=== PATIENT | female | born 1950 | race Two or more races ===

== ENCOUNTER 2024-02-17 17:00 | Emergency (ER) | payer MEDICAID, SELFPAY ==
[2024-02-17 17:31] VITALS: BP 183/73; PULSE 72; RESP 19; TEMP 36.9; O2SAT 97; BMI 32.8
--- NOTE | 2024-02-17 17:35 | EDRME_ITS ---
Rapid Medical Screening Exam [facility] Arrival date/time: 02/17/24 17:00 73-year-old female with a history of hypertension, hyperlipidemia, type 2 diabetes presents to the emergency room with a chief complaint of elevated blood pressure, lightheadedness, fatigue. Patient states she was sent over by her primary care provider for blood pressure been in the 200s systolic. Patient states she is compliant with her medication and takes a daily. I have greeted and performed a focused initial assessment of this patient. A comprehensive ED assessment and evaluation of the patient, analysis of all test results, and completion of the medical decision making process will be conducted by additional ED providers. Chief Complaint: Headache Vital signs: Vital Signs Temperature 98.5 F 02/17/24 17:31 Pulse Rate 72 02/17/24 17:31 Respiratory Rate 19 02/17/24 17:31 Blood Pressure 183/73 H 02/17/24 17:31 Pulse Oximetry (%) 97 02/17/24 17:31 Oxygen Delivery Method Room Air 02/17/24 17:31 Vital signs reviewed by provider: Yes
[2024-02-17 17:56] VITALS: BP 183/73; PULSE 72
[2024-02-17] MEDS: cloNIDine HCL 0.1 MG TABLET PO (17:56)
[2024-02-17 18:05] LABS: Basophils % (Auto) 1 % (0-2.5); Eosinophils # (Auto) 0.2 Thou/mm3 (0.0-0.5); Eosinophils % (Auto) 2 % (0-10); Hemoglobin 12.7 g/dL (12.0-16.0); Immature Granulocytes % (Auto) 0 % (0-0); Immature Granulocytes Auto 0.03 Thou/mm3 (0.00-0.00); Lymphocytes # (Auto) 2.9 Thou/mm3 (1.0-4.8); Lymphocytes % (Auto) 37 % (10-50); Mean Corpuscular HGB Conc 34.3 g/dl (31.0-37.0); Mean Corpuscular Hemoglobin 30.2 pg (25.0-35.0); Mean Corpuscular Volume 88 fL (80-100); Monocytes # (Auto) 0.6 Thou/mm3 (0.0-0.8); Monocytes % (Auto) 7 % (0-12); Neutrophils # (Auto) 4.2 Thou/mm3 (1.8-7.7); Neutrophils % (Auto) 53 % (37-80); Nucleated Red Blood Cell % 0 /100 WBC (0); Platelet Count 265 Thou/mm3 (140-440); RDW Standard Deviation 42.2 fL (36.4-46.3); Red Blood Count 4.21 Miln/mm3 (4.00-5.20); White Blood Count 7.9 Thou/mm3 (3.6-11.0)
[2024-02-17 18:29] LABS: B-Type Natriuretic Peptide 38 pg/mL (0-100)
[2024-02-17 18:30] LABS: INR 0.9 (0.9-1.3); Partial Thromboplastin Time 28.5 Seconds (22.0-36.0); Prothrombin Time 10.2 Seconds (9.0-12.2)
[2024-02-17 18:32] LABS: Alanine Aminotransferase 20 U/L (10-49); Albumin, Serum 4.9 gm/dL (3.4-4.8); Albumin/Globulin Ratio 1.6 (1.2-2.2); Alkaline Phosphatase 140 U/L (46-116); Anion Gap 10 (7-16); Aspartate Amino Transferase 15 U/L (0-34); BUN/Creatinine Ratio 19 Ratio (12-20); Bilirubin,Total 0.3 mg/dL (0.3-1.2); Blood Urea Nitrogen 15 mg/dL (9-23); Carbon Dioxide 26.5 mMol/L (20.0-31.0); Chloride 99 mMol/L (98-107); Creatinine (Component) 0.8 mg/dL (0.6-1.3); Estimated Creatinine Clearance 50.8 mL/min (>60); Globulin 3.1 gm/dL (2.3-3.5); Glucose 208 mg/dL (74-106); Magnesium 1.7 mg/dL (1.6-2.6); Osmolality,Calculated 276 (275-295); Potassium 4.2 mMol/L (3.4-5.1); Sodium 135 mMol/L (136-145); Troponin I < 0.020 ng/mL (0.0-0.045); eGFR > 60 See Note
[2024-02-17 18:56] LABS: Collection Type, Urine Clean Catch; Squamous Epithelial Cell,Urine 0 /hpf (0-5)
[2024-02-17 19:08] LABS: Bilirubin,Urine Negative (Negative); Blood,Urine Negative (Negative); Clarity,Urine Clear (Clear/Hazy); Color,Urine Colorless (Lt Yel-Yel); Glucose, Urine Negative (Negative); Ketones,Urine Negative (Negative); Leukocyte Esterase,Urine Negative (Negative); Nitrite,Urine Negative (Negative); PH,Urine 6.5 (5.0-7.0); Protein,Urine Negative (Neg - Trace); RBC,Urine 2 /hpf (0-3); Specific Gravity,Urine 1.012 (1.001-1.035); Urobilinogen,Urine Negative mg/dL (0.0-1.0); WBC,Urine 3 /hpf (0-5)
--- NOTE | 2024-02-17 19:09 | XR_ITS ---
Examination: CT brain head without contrast. 2-D sagittal coronal reconstructions Date and time of exam:February 17, 2024 2118 hrs. Indications: Severe headache today CTDI: vol (mGy):49.6 DLP: (mGycm):977 Technique: Multiple CT axial sections of the brain have been obtained, 5 mm slice thickness. Contrast has not been administered. 2-D sagittal, coronal reconstructions have been obtained Low dose protocols were performed. One or more of the following dose reduction techniques were used; automated exposure control, adjustment of the mA and/or KV according to patient size, use of iterative reconstruction technique. Findings: No significant ventricular enlargement. Intra-axial or extra-axial hemorrhage density is not seen. No mass effect or midline shift Basal cisterns are not remarkable. Fourth ventricle is midline. Cranial vault intact. Impression: Negative for acute hemorrhage, mass effect or midline shift
[2024-02-17 19:45] LABS: C-Reactive Protein 0.5 mg/dL (0.0-0.9); Sed Rate (ESR) 33 mm/hr (0-30)
--- NOTE | 2024-02-17 21:02 | PD.EDRME ---
Rapid Medical Screening Exam [facility]ME Arrival date/time: 02/17/24 17:00 02/17/24 17:00 73-year-old female with a history of hypertension, hyperlipidemia, type 2 diabetes presents to the emergency room with a chief complaint of elevated blood pressure, lightheadedness, fatigue. Patient states she was sent over by her primary care provider for blood pressure been in the 200s systolic. Patient states she is compliant with her medication and takes a daily. I have greeted and performed a focused initial assessment of this patient. A comprehensive ED assessment and evaluation of the patient, analysis of all test results, and completion of the medical decision making process will be conducted by additional ED providers. Chief Complaint: Headache Time Seen by Provider: 02/17/24 18:15 Vital signs: Vital Signs Temperature 98.5 F 02/17/24 17:31 Pulse Rate 72 02/17/24 17:31 Respiratory Rate 19 02/17/24 17:31 Blood Pressure 183/73 H 02/17/24 17:31 Pulse Oximetry (%) 97 02/17/24 17:31 Oxygen Delivery Method Room Air 02/17/24 17:31 RME Narrative: 02/17/24 17:00 73-year-old female with a history of hypertension, hyperlipidemia, type 2 diabetes presents to the emergency room with a chief complaint of elevated blood pressure, lightheadedness, fatigue. Patient states she was sent over by her primary care provider for blood pressure been in the 200s systolic. Patient states she is compliant with her medication and takes a daily. I have greeted and performed a focused initial assessment of this patient. A comprehensive ED assessment and evaluation of the patient, analysis of all test results, and completion of the medical decision making process will be conducted by additional ED providers.
[2024-02-17 21:24] VITALS: BP 104/59; PULSE 61; RESP 19; TEMP 37.1; O2SAT 96
--- NOTE | 2024-02-17 23:32 | PD.EDHA ---
ED Headache RME/HPI General Chief Complaint: Headache Stated Complaint: HEADACHE Time Seen by Provider: 02/17/24 18:15 Arrival date/time: 02/17/24 17:00 Limitations: no limitations RME / HPI RME / HPI Narrative: 02/17/24 17:00 73-year-old female with a history of hypertension, hyperlipidemia, type 2 diabetes presents to the emergency room with a chief complaint of elevated blood pressure, lightheadedness, fatigue. Patient states she was sent over by her primary care provider for blood pressure been in the 200s systolic. Patient states she is compliant with her medication and takes a daily. I have greeted and performed a focused initial assessment of this patient. A comprehensive ED assessment and evaluation of the patient, analysis of all test results, and completion of the medical decision making process will be conducted by additional ED providers. ------- Dr. [facility]end[facility] Main ED Evaluation: 73yo female with pmhx HTN, HLD, DM, cataracts presents to the ED for a chief complaint of elevated blood pressure x Tuesday. Patient states she's had a headache and started feeling dizzy today and was concerned, so she came in for evaluation. She states she feels like the room is spinning. She denies any history of similar dizziness. She has not been seen by her PCP for this. Denies any vision changes, cough, chest pain or any other associated symptoms. No known allergies. No vision changes. No neck pain or stiffness. Related Data Previous Rx's ?Medication ?Instructions ?Recorded meclizine 25 mg tablet 25 mg PO BID PRN dizziness #10 tabs 02/18/24 Allergies Allergy/AdvReac Type Severity Reaction Status Date / Time No Known Allergies Allergy Verified 02/17/24 17:03 Review of Systems Review of Systems Systems Reviewed: All systems reviewed, normal except as documented Past Medical History Social History SMOKING STATUS: Never smoker ED Exam General Limitations: Present no limitations General appearance: Present alert and in no apparent distress Head Head exam: Present atraumatic and other (no temporal artery ttp bilaterally) Eye Eye exam: Present normal appearance, PERRL and other (cornea not cloudy; no nystagmus); Absent scleral icterus ENT ENT exam: Present normal exam, normal oropharynx and mucous membranes moist Neck Neck exam: Present normal inspection, full ROM and trachea midline Chest Chest inspection: Present normal inspection and symmetric chest wall rise Respiratory Respiratory exam: Present normal lung sounds bilaterally Cardiovascular Cardiovascular exam: Present regular rate, normal rhythm and normal heart sounds Abdominal Exam Abdominal exam: Present soft and normal bowel sounds Extremities Exam Extremities exam: Present normal inspection and full ROM Back Exam Back exam: Present normal inspection and full ROM Neurological Exam Neurological exam: Present alert, oriented X3, CN II-XII intact and other (normal [id number]-[id number], normal sensations; negative romberg sign) Psychiatric Psychiatric exam: Present normal affect and normal mood Skin Skin exam: Present warm, dry, intact and normal color Course Course Course Narrative: Meclizine ordered due to the patient still being dizzy. 0123: Patient states she feels significantly better and feels comfortable going home. Quality Measures none Orders Category Date Time Status EKG (ED ONLY) *Do not use* NOW Care 02/17/24 17:[address] head/brain wo con Stat Exams 02/17/24 19:09 Completed EKG (ED Only) Stat Exams 02/17/24 17:34 Ordered B-Type Natriuretic Peptide Stat Lab 02/17/24 17:49 Completed C-Reactive Protein Stat Lab 02/17/24 17:49 Completed CBC Stat Lab 02/17/24 17:49 Completed Comprehensive Metabolic Panel Stat Lab 02/17/24 17:49 Completed Magnesium Stat Lab 02/17/24 17:49 Completed Partial Thromboplastin Time Stat Lab 02/17/24 17:49 Completed Prothrombin Time with INR Stat Lab 02/17/24 17:49 Completed Sed Rate (ESR) Stat Lab 02/17/24 17:49 Completed Troponin I Stat Lab 02/17/24 17:49 Completed Urinalysis Stat Lab 02/17/24 18:40 Completed Meclizine HCl [Antivert] Med 02/17/24 23:39 Discontinued 25 mg PO X1 ONE cloNIDine HCL [Catapres] Med 02/17/24 17:34 Discontinued 0.1 mg PO X1 ONE Vital Signs Vital signs: Vital Signs Temperature 98.5 F 02/17/24 17:31 Pulse Rate 72 02/17/24 17:31 Respiratory Rate 19 02/17/24 17:31 Blood Pressure 183/73 H 02/17/24 17:31 Pulse Oximetry (%) 97 02/17/24 17:31 Oxygen Delivery Method Room Air 02/17/24 17:31 Headache Patient data External records reviewed:: [facility] previous records (Per chart review, patient has no previous ED visits or admissions to this facility) Clinical information provided by:: patient Social determinants that could affect healthcare access:: none Patient has the following chronic illnesses:: HTN, DM, HLD How is presenting disease/condition affected by chronic disease/condition?: caused by Evaluation data The following diagnostics were reviewed and interpreted by me:: lab results, radiology exam(s) and EKG tracing(s) Lab and/or radiology exams considered but not ordered:: none Interpretation Summary: CBC is normal, CMP is normal, UA is unremarkable, according to my interpretation, EKG done at 1745, NSR, rate of 70, PVCs, QTc: 483, no STEMI, according to my interpretation. ----- [facility] Report Signed Patient: OMAR GOINS Record#: [id number] Birthdate: 1950 Age/Sex: 73 / F Location: [facility] Attending Dr: Ordering Physician: Zen Fields PA-C Date of Service: 02/17/24 Procedure(s): CT head/brain wo con Accession Number(s): [id number] cc: Christian Vaelro PA-C; Warren Flowers MD; Zen Fields PA-C~ Examination: CT brain head without contrast. 2-D sagittal coronal reconstructions Date and time of exam:February 17, 2024 2118 hrs. Indications: Severe headache today CTDI: vol (mGy):49.6 DLP: (mGycm):977 Technique: Multiple CT axial sections of the brain have been obtained, 5 mm slice thickness. Contrast has not been administered. 2-D sagittal, coronal reconstructions have been obtained Low dose protocols were performed. One or more of the following dose reduction techniques were used; automated exposure control, adjustment of the mA and/or KV according to patient size, use of iterative reconstruction technique. Findings: No significant ventricular enlargement. Intra-axial or extra-axial hemorrhage density is not seen. No mass effect or midline shift Basal cisterns are not remarkable. Fourth ventricle is midline. Cranial vault intact. Impression: Negative for acute hemorrhage, mass effect or midline shift Dictated By: Warren Flowers MD Signed By: <Electronically signed by Warren Flowers MD in OV> 02/17/24 8707 Medications / Prescriptions Medications or Prescriptions considered but not ordered:: none Medication administrations:: Medication Administration History Discontinued Medications Clonidine (Clonidine Hcl 0.1 Mg Tablet) 0.1 mg PO X1 ONE Stop: 02/17/24 17:35 Last Admin: 02/17/24 17:56 Dose: 0.1 mg Documented By: OA Meclizine HCl (Meclizine Hcl 25 Mg Tablet) 25 mg PO X1 ONE Stop: 02/17/24 23:40 Last Admin: 02/17/24 23:44 Dose: 25 mg Documented By: GB see above Consultations Consultation(s) initiated? (list below): No Diagnosis Differential diagnosis headache: other (vertigo, uncontrolled HTN, dehydration, electrolyte abnormality) Most likely diagnosis given after review of the tests above:: see below Admission Indicated Admission indicated?: not indicated Explain why admission is indicated or not indicated:: Admission criteria not met. Admission Request Was there a request for admission?: No Disposition Plan Disposition Plan: Discharge Discharge Attestation Discharge Attestation: The patient and all family members were given an opportunity to ask questions and understood the discharge instructions. Discharge instructions specifically effects, indications for sooner follow up or return to the emergency department, and the expected course of current diagnosis. Patient condition: Stable Discharge Plan Plan Patient Disposition: HOME (Self Care) Patient condition on transfer: Stable Prescriptions/Referrals Prescriptions/Med Rec: New meclizine 25 mg tablet 25 mg PO BID PRN (Reason: dizziness) Qty: 10 0RF Referrals: Christian Valero PA-C [Primary Care Provider] - In 1 week Problem List Clinical Impression: Elevated blood pressure reading, Dizziness Patient/Caregiver Discharge Instructions Education Materials: [facility] Print Language: Serbian Stand Alone Forms: Mary Award Info., Patient Portal Info Letter
[2024-02-17] MEDS: MECLIZINE HCL 25 MG TABLET PO (23:44)
[2024-02-18 00:19] VITALS: BP 109/61; PULSE 63; RESP 19; TEMP 37.1; O2SAT 96
== END 2024-02-18 01:38 | disposition home or self-care (01) ==
PROVIDERS: Nurse Practitioner Family; Emergency Provider Emergency Medicine; PCP Family Medicine
DX: R42 Dizziness and giddiness (principal); E11.9 Type 2 diabetes mellitus without complications; E78.5 Hyperlipidemia, unspecified; I10 Essential (primary) hypertension
CPT/HCPCS: 36415; 70450; 80053; 81001; 83735; 83880; 84484; 85025; 85610; 85652; 85730; 86140; 93005; 99284; A9270

== ENCOUNTER → 2024-02-23 | Outpatient (CLI) | payer MEDICAID, SELFPAY ==
--- NOTE | 2024-02-23 09:00 | XR_ITS ---
Examination: Upper GI series with KUB Esophagram Fluoroscopy 15 spot fluoroscopic films of the esophagus and stomach Exam date and time: February 22, 2019 5:10 AM INDICATIONS: Vomiting beginning 6 months ago FINDINGS: Ug Designer KUB demonstrates moderate stool throughout the colon Patient swallowed thin barium with 13 spot films obtained of the esophagus stomach duodenal bulb Primary peristaltic esophageal waves are noted Mild intermittent gastroesophageal reflux Moderate sliding esophageal hernia. No constricting esophageal lesion No stricture at the gastroesophageal junction No gastric mass or deformity or ulceration Duodenal bulb expands symmetrically Duodenal sweep and small bowel visualized are unremarkable IMPRESSION: Mild intermittent gastroesophageal reflux Moderate sliding esophageal hernia No stricture the gastroesophageal junction No gastric mass or ulceration or deformity Fluoroscopy 0.13 minutes 15 spot fluoroscopic films
== END | disposition home or self-care (01) ==
PROVIDERS: PCP Family Medicine; Referring Provider Surgery; Visit Provider Surgery
DX: K21.9 Gastro-esophageal reflux disease without esophagitis (principal); K46.9 Unspecified abdominal hernia without obstruction or gangrene
CPT/HCPCS: 74240

== ENCOUNTER 2024-07-31 14:43 | Observation (INO) | payer MEDICAID, SELFPAY ==
[2024-07-30 09:42] VITALS: BMI 32.5
[2024-07-30 10:53] LABS: Basophils % (Auto) 0 % (0-2.5); Eosinophils # (Auto) 0.2 Thou/mm3 (0.0-0.5); Eosinophils % (Auto) 2 % (0-10); Hemoglobin 13.7 g/dL (12.0-16.0); Immature Granulocytes % (Auto) 0 % (0-0); Immature Granulocytes Auto 0.02 Thou/mm3 (0.00-0.00); Lymphocytes # (Auto) 2.1 Thou/mm3 (1.0-4.8); Lymphocytes % (Auto) 27 % (10-50); Mean Corpuscular HGB Conc 34.3 g/dl (31.0-37.0); Mean Corpuscular Hemoglobin 29.6 pg (25.0-35.0); Mean Corpuscular Volume 86 fL (80-100); Monocytes # (Auto) 0.6 Thou/mm3 (0.0-0.8); Monocytes % (Auto) 7 % (0-12); Neutrophils # (Auto) 4.8 Thou/mm3 (1.8-7.7); Neutrophils % (Auto) 63 % (37-80); Nucleated Red Blood Cell % 0 /100 WBC (0); Platelet Count 231 Thou/mm3 (140-440); RDW Standard Deviation 40.7 fL (36.4-46.3); Red Blood Count 4.63 Miln/mm3 (4.00-5.20); White Blood Count 7.7 Thou/mm3 (3.6-11.0)
[2024-07-30 10:57] LABS: INR 0.9 (0.9-1.3); Partial Thromboplastin Time 27.9 Seconds (22.0-36.0); Prothrombin Time 10.4 Seconds (9.0-12.2)
[2024-07-30 11:14] LABS: Alanine Aminotransferase 18 U/L (10-49); Albumin, Serum 4.2 gm/dL (3.4-4.8); Albumin/Globulin Ratio 1.6 (1.2-2.2); Alkaline Phosphatase 114 U/L (46-116); Anion Gap 8 (7-16); Aspartate Amino Transferase 17 U/L (0-34); BUN/Creatinine Ratio 16 Ratio (12-20); Bilirubin,Total 0.3 mg/dL (0.3-1.2); Blood Urea Nitrogen 13 mg/dL (9-23); Calcium 9.2 mg/dL (8.3-10.6); Calcium (Corrected) 9.2 mg/dL (8.5-10.1); Carbon Dioxide 27.7 mMol/L (20.0-31.0); Chloride 104 mMol/L (98-107); Creatinine (Component) 0.8 mg/dL (0.6-1.3); Estimated Creatinine Clearance 49.9 mL/min (>60); Globulin 2.7 gm/dL (2.3-3.5); Glucose 231 mg/dL (74-106); Osmolality,Calculated 286 (275-295); Potassium 4.7 mMol/L (3.4-5.1); Sodium 140 mMol/L (136-145); Total Protein 6.9 gm/dL (5.7-8.2); eGFR > 60 See Note
[2024-07-31] VITALS (21 sets, daily range): BP systolic 135–204; BP diastolic 60–81; PULSE 55–95; RESP 15–20; TEMP 36.1–37; O2SAT 93–100; BMI 33.8
--- NOTE | 2024-07-31 06:00 | EKG_ITS ---
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
[2024-07-31] MEDS: RINGERS LACTATED 1000 ML 1,000 ML 20 ML IV (07:12)
--- NOTE | 2024-07-31 07:34 | CHAP ---
Prayed with patient in Turkmen about her upcoming procedure.
--- NOTE | 2024-07-31 09:36 | SUR.PHASEI ---
pt received from OR in recovery bay 7. pt obtunded, breathing unlabored on oxymask 8l, oral airway in place. v/s stable. pt dressing to abd x4 cdi. report received from Carlie ALEX and Dr. Lopez.
--- NOTE | 2024-07-31 09:41 | ESOP_ITS ---
Date of Procedure 07/31/24 Pre Op Diagnosis Symptomatic cholelithiasis Post Op Diagnosis Same Procedure Laparoscopic cholecystectomy Findings Patient was found to have a noninflamed gallbladder with couple of stones Procedure Description After endotracheal anesthesia was given the patient was placed in supine position and the abdomen was prepped with chloroprep solution and draped in a sterile manner. After time out was performed I injected a few cc of of half percent Marcaine with epinephrine below the umbilicus and I made an incision for about 3 cm in length. The fascia was cleaned and Veress needle was inserted to create a pneumoperitoneum up to 15 mmHg. Then introduced a 12 mm trocar and a 10 mm camera through the fascia and I inspected the intra-abdominal organs as well as the gallbladder and the liver. Another 5 mm trocar was inserted in the epigastric region under direct vision after injecting some local anesthesia. At this time the patient was kept in reverse Trendelenburg position with the left lateral tilt. The third 5 mm trocar was inserted over the mid axillary line under direct vision and a Scott and Rabia grasper was used to hold the fundus of the gallbladder. The retraction was carried out by the assistant drafter moving the fundus of the gallbladder towards the right shoulder of the patient to create enough traction. I placed a another 5 mm trocar in the midaxillary line just lateral to the rectus muscle under direct vision. I used a fenestrated grasper to retract the neck of the gallbladder laterally towards the patient's right hip. The Calot's triangle was exposed and I achieved the critical view of safety as follows: I dissected out the fatty tissue from the hepatocystic triangle and cleared this area. I also dissected inferior and posterior to the gallbladder to identify the cystic duct and the gallbladder wall. Then superiorly I dissected along the cystic plate up to lower one third third of the gallbladder to lift the gallbladder from the liver. At this time I confirmed that only 2 structures entering the gallbladder were cystic artery and the cystic duct. The common duct was seen distally but no dissection was carried out around the duct. I did not see any need for operative cholangiogram in this patient. The cystic duct was clipped doubly and then divided and cystic artery was similarly dealt with. Then the gallbladder was removed from the liver bed using Harmonic susu to control the small blood vessels as the dissection proceeded. Then the gallbladder was from the liver bed completely and delivered through the umbilical port using an Endopouch. The liver bed was coagulated with cautery to obtain satisfactory hemostasis. The trocars were pulled out from the abdominal cavity and the fascia at the umbilical incision was closed with interrupted 0 Ethibond. Subcutaneous tissues was closed with 3- 0 chromic and injected a few cc of half percent Marcaine with epinephrine and the skin was closed with interrupted 4-0 nylon stitches at all the trocar sites. Dressing was applied with 2 x 2 and Tegaderm. Patient tolerated the procedure well and returned to recovery room in stable condition. Anesthesia GETA Pathology / specimen Other (Gallbladder and the stones) IVF Infused 600 Estimated Blood Loss 30 Surgeon Khushbu Hobson MD Surgical Staff Operation Date: 07/31/24 08:00 Case Staff Anesthesiologist: Armand Lopez EXPLOSIVE ORDNANCE MANAGER: Amalia Reilly RNsales representative uniforms: [employer] Pos[employer]
[2024-07-31] MEDS: INSULIN GLARGINE (Lantus) 5 UNIT/0.05 ML (PER 5 UNITS) 10 UNIT SC ×2 (10:07→20:25)
[2024-07-31] MEDS: INSULIN LISPRO (AdmeLOG) 1 UNIT/0.01 ML UNIT 3 UNIT SC (10:08)
[2024-07-31] MEDS: fentaNYL CIT INJ 50 mCg/ML AMP 2ML 25 MCG IVP ×4 (10:14→11:32)
--- NOTE | 2024-07-31 11:45 | SUR.PHASEII ---
report from nurse oumar. vss. hospitalist at bedside. evaluating for glucose. vss. daughter also at bedside. denies pain and nausea. dressing cdi.
[2024-07-31] MEDS: amLODIPine BESYLATE 5 MG TABLET PO (12:08)
--- NOTE | 2024-07-31 12:19 | SUR.PHASEII ---
report to nurse oumar. suns. daughter at bedside.
--- NOTE | 2024-07-31 14:40 | SUR.PHASEII ---
pt awake and alert, breathing unlabored on nc 1l nc. v/s stable. pt dressing to abd x4 cdi. report called to Pop ALEX. pt will be transferred to room at this time.
[2024-07-31] MEDS: SODIUM CHLORIDE 0.9% 1000 ML 1,000 ML 50 ML IV (15:41)
[2024-07-31] MEDS: INSULIN LISPRO (AdmeLOG) 1 UNIT/0.01 ML UNIT SC ×2 (15:41→20:25)
--- NOTE | 2024-07-31 16:20 | PD.RESCONSUL ---
HPI Data of Consult Requesting Physician: Khushbu Hobson MD Admitting Provider: Khushbu Hobson MD Attending Provider: Khushbu Hobson MD Primary Care Provider: Darnell Roe MD Consult Narrative Reason for consult: Hyperglycemia History of present illness: Patient is a 74-year-old female with history of hypertension and [id number] type 2 diabetes. She had laparoscopic cholecystectomy completed on 07/31 with no complications. Procedure completed by Dr. Parr. Hospitalist team consulted for hyperglycemia during hospitalization. Blood sugars ranging 260?280. Patient denies checking sugars at home. Will start patient on 10 units glargine at bedtime and continue sliding scale insulin, low-carb diet. Also lactulose and referral to physical therapy. Patient is otherwise stable, no signs of bleeding on physical exam, some lower abdominal tenderness. cc:: cc: Khushbu Hobson MD Review of Systems Review of Systems Systems Reviewed: All systems reviewed, normal except as documented Exam Vital Signs Temp Pulse Resp BP Pulse Ox O2 Flow Rate 98.1 F 65 20 139/63 H 95 1 07/31/24 14:30 07/31/24 14:30 07/31/24 14:30 07/31/24 14:30 07/31/24 14:30 07/31/24 14:30 Narrative Exam General: Alert and oriented x3. No acute distress, cooperative HEENT: NCAT, No JVD noted. Mucosa moist. Pupils are equal and reactive to light bilaterally Cardiovascular: Normal S1 and S2. Regular rate and rhythm. Respiratory: Lungs are clear to auscultation bilaterally. No wheezing or crackles heard. Abdomen: Soft, lower abdomen tenderness, Band-Aid with no bleeding, not distended, normal bowel sounds. Skin: Warm to touch, dry, no rashes noted Musculoskeletal: No gross injuries. Able to move all 4 extremities. No pitting edema Neuro: Alert and oriented x3. No focal neuro deficits. Psych: Normal affect and mood Results Labs 08/01/24 04:48 08/01/24 04:48 Quality Measures Quality Measures VTE prophylaxis Advance care planning discussed with:: patient Medications Home Medications and Allergies Home Medications ?Medication ?Instructions ?Recorded ?Confirmed ?Type azelastine 0.05 % eye drops 1 drp ophthalmic (eye) QDAY 07/30/24 07/31/24 History losartan 100 1 tab PO QDAY 07/30/24 07/31/24 History mg-hydrochlorothiazide 25 mg tablet semaglutide 3 mg tablet (Rybelsus) 3 mg PO BIDAC 07/30/24 07/31/24 History Allergies Allergy/AdvReac Type Severity Reaction Status Date / Time No Known Allergies Allergy Verified 07/31/24 07:21 Visit Medications Acetaminophen (Acetaminophen 325 Mg Tablet) 650 mg PO Q6HR PRN PRN Reason: FEVER 101.5 Stop: 08/30/24 15:26 Amlodipine Besylate (Amlodipine Besylate 5 Mg Tablet) 5 mg PO QDAY EBEN Stop: 08/30/24 11:59 Last Admin: 07/31/24 12:08 Dose: 5 mg Dextrose (Dextrose 50%-Water Inj 50 Ml Syringe) 25 ml IV Q15MIN PRN PRN Reason: BG 50-70 responsive npo pt Stop: 08/30/24 11:54 Dextrose (Dextrose 50%-Water Inj 50 Ml Syringe) 50 ml IV Q15MIN PRN PRN Reason: BG <50 OR BG <70 & pt unresponsive Stop: 08/30/24 11:54 Glucagon (Glucagon Inj 1 Mg Vial) 1 mg IM Q15MIN PRN PRN Reason: BG <70, and no IV access Sodium Chloride (Ns) 1,000 mls @ 50 mls/hr IV .Q20H EBEN Stop: 08/30/24 15:26 Last Admin: 07/31/24 15:41 Dose: 50 mls/hr Insulin Glargine (Insulin Glargine (Lantus) 5 Unit/0.05 Ml (Per 5 Units)) 10 unit SC HS EBEN Stop: 08/30/24 20:59 Insulin Human Lispro (Insulin Lispro (Admelog) 1 Unit/0.01 Ml Unit) 0 unit SC Q6H EBEN; Protocol Stop: 08/30/24 14:29 Last Admin: 07/31/24 15:41 Dose: 4 unit Morphine Sulfate (Morphine Sulf Inj 10 Mg/Ml Vial) 3 mg IVP Q4HR PRN PRN Reason: PAIN Stop: 08/05/24 15:26 Ondansetron HCl (Ondansetron Inj 2 Mg/Ml Inj 2 Ml) 4 mg IVP Q4HR PRN; Protocol PRN Reason: NAUSEA OR VOMITING Stop: 08/30/24 15:26 Discontinued Medications Fentanyl Citrate (Fentanyl Cit Inj 50 Mcg/Ml Amp 2ml) 25 mcg IVP Q5M PRN; Protocol PRN Reason: PAIN SCALE 7-10 (Severe Stop: 07/31/24 11:31 Last Admin: 07/31/24 10:14 Dose: 25 mcg Fentanyl Citrate (Fentanyl Cit Inj 50 Mcg/Ml Amp 2ml) 25 mcg IVP Q5M PRN; Protocol PRN Reason: PAIN SCALE 4-6 (Moderate Stop: 07/31/24 11:31 Last Admin: 07/31/24 11:32 Dose: 25 mcg Fentanyl Citrate (Fentanyl Cit Inj 50 Mcg/Ml Amp 2ml) 25 mcg IVP Q5M PRN; Protocol PRN Reason: PAIN SCALE 1-3 (mild Stop: 07/31/24 11:32 Hydralazine HCl (Hydralazine Inj 20 Mg/Ml Vial) 10 mg IVP X1 ONE Stop: 07/31/24 09:42 Last Admin: 07/31/24 12:40 Dose: Not Given Lactated Ringer's (Lactated Ringers) 1,000 mls @ 20 mls/hr IV .Q24H ONE Stop: 08/01/24 05:59 Last Admin: 07/31/24 07:12 Dose: 20 mls/hr Insulin Glargine (Insulin Glargine (Lantus) 5 Unit/0.05 Ml (Per 5 Units)) 10 unit SC X1 ONE Stop: 07/31/24 09:54 Last Admin: 07/31/24 10:07 Dose: 10 unit Insulin Human Lispro (Insulin Lispro (Admelog) 1 Unit/0.01 Ml Unit) 3 unit SC X1 ONE; Protocol Stop: 07/31/24 09:55 Last Admin: 07/31/24 10:08 Dose: 3 unit Insulin Human Lispro (Insulin Lispro (Admelog) 1 Unit/0.01 Ml Unit) 0 unit SC AC EBEN; Protocol Stop: 08/30/24 16:59 Ondansetron HCl (Ondansetron Inj 2 Mg/Ml Inj 2 Ml) 4 mg IVP X1 ONE Stop: 07/31/24 09:32 Last Admin: 07/31/24 12:41 Dose: Not Given Assessment & Plan Plan 73-year-old female status post laparoscopic cholecystectomy done 07/[address] Parr. Hospitalist team consulted for management of hyperglycemia. #Hyperglycemia 2/2 [id number] type 2 diabetes Patient takes Janumet 50mg-1000mg at home. No A1c reported on file. Glucose on admission 236. -Held home medications -Bedside blood glucose checks ACHS -glargine 10units HS -Insulin lispro sliding scale -Carb consistent low diet -Diabetes education -A1c pending #HTN Resumed home med amlodipine 5mg daily #s/p laparoscopic cholecystectomy Recommendations per surgery team. -pending PT Health maintenance: Dispo: consulted for hyperglycemia, status post Dotty on MedSurg FEN: Low-carb clear liquid diet, will advance as tolerated DVT prophylaxis: SCDs CODE STATUS: Full code The patient's management plan was discussed with my attending physician Dr. Marie. Chloé Casas, PGY-1 Attending Provider Attestation/Addendum I attest that I was physically present for the evaluation, physical examination, lab and imaging review of the patient with the residents. I discussed the case with the residents and agree with the findings and plans of care as documented above. Patient is a 74 years old female with past medical history of hypertension and diabetes who underwent elective laparoscopic cholecystectomy for symptomatic cholelithiasis with general surgery today.? Patient was found to be hyperglycemic in 280s, she was also hypertensive with systolic blood pressure in 160s.? Internal medicine service was consulted for management of hyperglycemia and hypertension.? Received 10 units of Lantus this morning, started on insulin sliding scale step 2.? We will monitor closely and add more Lantus in the evening if needed. Joseph Marie MD
[2024-07-31] MEDS: ACETAMINOPHEN 325 MG TABLET 650 MG PO (20:18)
[2024-08-01] VITALS: BP 121/52; PULSE 63; RESP 20; TEMP 36.2; O2SAT 95
[2024-08-01] MEDS: INSULIN LISPRO (AdmeLOG) 1 UNIT/0.01 ML UNIT SC ×2 (02:23→08:39)
[2024-08-01 04:00] VITALS: BP 138/71; PULSE 59; RESP 18; TEMP 36.3; O2SAT 95
[2024-08-01 05:10] LABS: Basophils % (Auto) 0 % (0-2.5); Eosinophils % (Auto) 0 % (0-10); Hematocrit 34.9 % (36.0-46.0); Hemoglobin 12.2 g/dL (12.0-16.0); Immature Granulocytes % (Auto) 1 % (0-0); Immature Granulocytes Auto 0.06 Thou/mm3 (0.00-0.00); Lymphocytes # (Auto) 1.5 Thou/mm3 (1.0-4.8); Lymphocytes % (Auto) 13 % (10-50); Mean Corpuscular Hemoglobin 29.5 pg (25.0-35.0); Mean Corpuscular Volume 84 fL (80-100); Monocytes # (Auto) 0.7 Thou/mm3 (0.0-0.8); Monocytes % (Auto) 6 % (0-12); Neutrophils # (Auto) 9.5 Thou/mm3 (1.8-7.7); Neutrophils % (Auto) 81 % (37-80); Nucleated Red Blood Cell % 0 /100 WBC (0); Platelet Count 232 Thou/mm3 (140-440); RDW Standard Deviation 39.5 fL (36.4-46.3); Red Blood Count 4.14 Miln/mm3 (4.00-5.20); White Blood Count 11.7 Thou/mm3 (3.6-11.0)
[2024-08-01 05:20] LABS: Glucose Estimated Average 321 mg/dL (80-131); Hemoglobin A1C 12.8 % Hgb (4.8-6.0)
[2024-08-01 05:49] LABS: Alanine Aminotransferase 76 U/L (10-49); Albumin, Serum 3.7 gm/dL (3.4-4.8); Albumin/Globulin Ratio 1.5 (1.2-2.2); Alkaline Phosphatase 86 U/L (46-116); Anion Gap 9 (7-16); Aspartate Amino Transferase 61 U/L (0-34); BUN/Creatinine Ratio 14 Ratio (12-20); Bilirubin,Total 0.5 mg/dL (0.3-1.2); Blood Urea Nitrogen 10 mg/dL (9-23); Calcium 8.6 mg/dL (8.3-10.6); Calcium (Corrected) 8.8 mg/dL (8.5-10.1); Carbon Dioxide 24.7 mMol/L (20.0-31.0); Chloride 105 mMol/L (98-107); Creatinine (Component) 0.7 mg/dL (0.6-1.3); Estimated Creatinine Clearance 57.1 mL/min (>60); Globulin 2.4 gm/dL (2.3-3.5); Glucose 198 mg/dL (74-106); Osmolality,Calculated 282 (275-295); Potassium 4.2 mMol/L (3.4-5.1); Sodium 139 mMol/L (136-145); Total Protein 6.1 gm/dL (5.7-8.2); eGFR > 60 See Note
[2024-08-01 08:00] VITALS: BP 134/65; PULSE 59; RESP 19; TEMP 36.4; O2SAT 94
[2024-08-01] MEDS: LACTULOSE SYRUP 20 GM/30 ML UDC 10 GM PO (08:40)
[2024-08-01] MEDS: INSULIN GLARGINE (Lantus) 5 UNIT/0.05 ML (PER 5 UNITS) 10 UNIT SC (08:40)
[2024-08-01 08:43] VITALS: BP 150/70; PULSE 60
[2024-08-01] MEDS: amLODIPine BESYLATE 5 MG TABLET PO (08:43)
[2024-08-01] MEDS: ACETAMINOPHEN 325 MG TABLET 650 MG PO (09:22)
[2024-08-01 11:40] VITALS: BMI 34.0
[2024-08-01 12:00] VITALS: BP 142/55; RESP 56; TEMP 36.8; O2SAT 93
--- NOTE | 2024-08-01 12:10 | PC.PT ---
Patient is safe to ambulate to the bathroom and in the halls with a FWW and 1 staff assist. RN made aware.
--- NOTE | 2024-08-01 12:21 | PD.SURPROG ---
Documentation for date of: 08/01/24 Subjective Subjective Narrative: Patient is doing well since surgery. She is able to tolerate regular diet today Exam Vital Signs Temp Pulse Resp BP Pulse Ox O2 Del Method O2 Flow Rate 98.2 F 60 56 H 142/55 H 93 L Room Air 1 08/01/24 12:00 08/01/24 08:43 08/01/24 12:00 08/01/24 12:00 08/01/24 12:00 08/01/24 04:00 08/01/24 00:00 Her vital signs are normal Routine Abdominal Exam Comments: Abdominal examination is negative Results Results: Laboratory Laboratory Narrative: Patient's blood sugar is 198 Assessment & Plan Assessment Additional comments: Pression: Stable postoperative course Satisfactory glucose control Plan Plan: We shall discharge patient today and follow her up next week in the clinic. Diabetic instructions have been given to the patient Procedures Procedures Laparoscopic cholecystectomy
--- NOTE | 2024-08-01 13:53 | PD.RESPRO ---
Documentation for date of: 08/01/24 Subjective Subjective Interval history: Patient examined at bedside. No events overnight. She has no major complaints, pain well-controlled. Physical therapy worked with patient and she was able to ambulate well down the hodge. Blood sugars well-controlled this morning around 160, blood pressure controlled. She received diabetic education and instructed to start taking glargine 20 units at bedtime, use of freestyle lance 3. Patient should continue taking Janumet and Rybelsus for diabetes as well. Patient is stable and and cleared for DC from medical standpoint. Exam Vital Signs Temp Pulse Resp BP Pulse Ox O2 Del Method O2 Flow Rate 98.2 F 60 56 H 142/55 H 93 L Room Air 1 08/01/24 12:00 08/01/24 08:43 08/01/24 12:00 08/01/24 12:00 08/01/24 12:00 08/01/24 04:00 08/01/24 00:00 Narrative Exam General: Alert and oriented x3. No acute distress, cooperative HEENT: NCAT, No JVD noted. Mucosa moist. Pupils are equal and reactive to light bilaterally Cardiovascular: Normal S1 and S2. Regular rate and rhythm. Respiratory: Lungs are clear to auscultation bilaterally. No wheezing or crackles heard. Abdomen: Soft, lower abdomen tenderness, Band-Aid with no bleeding, not distended, normal bowel sounds. Skin: Warm to touch, dry, no rashes noted Musculoskeletal: No gross injuries. Able to move all 4 extremities. No pitting edema Neuro: Alert and oriented x3. No focal neuro deficits. Psych: Normal affect and mood Objective Labs 08/01/24 04:48 08/01/24 04:48 Labs: Laboratory Results - last 24 hr 08/01/24 04:48 WBC 11.7 H D RBC 4.14 Hgb 12.2 Hct 34.9 L MCV 84 MCH 29.5 MCHC 35.0 RDW Std Deviation 39.5 Plt Count 232 Neut % (Auto) 81 H Lymph % (Auto) 13 [place] % (Auto) 6 Eos % (Auto) 0 Baso % (Auto) 0 Neut # (Auto) 9.5 H Lymph # (Auto) 1.5 [place] # (Auto) 0.7 Eos # (Auto) 0.0 Baso # (Auto) 0.0 Immature Gran # (Auto) 0.06 H Absolute Nucleated RBC 0.00 Immature Gran % 1 H Nucleated RBC % 0 Sodium 139 Potassium 4.2 D Chloride 105 Carbon Dioxide 24.7 Anion Gap 9 BUN 10 Creatinine 0.7 Estim Creat Clear Calc 57.1 L eGFR > 60 BUN/Creatinine Ratio [address] Glu mg/dL 321 H Hemoglobin A1c 12.8 H Calculated Osmolality 282 Calcium 8.6 Corrected Calcium 8.8 Total Bilirubin 0.5 AST 61 H ALT 76 H Alkaline Phosphatase 86 D Total Protein 6.1 Albumin 3.7 D Globulin 2.4 Albumin/Globulin Ratio 1.5 Quality Measures Quality Measures VTE prophylaxis Advance care planning discussed with:: patient Assessment & Plan Assessment Current Active Medications: Generic Name Dose Route Start Last Admin Trade Name Freq PRN Reason Stop Dose Admin Acetaminophen 650 mg 07/31/24 20:01 08/01/24 09:22 Acetaminophen 325 Mg Tablet PO 08/30/24 15:26 650 mg Q6HR PRN Administration pain 1-3 and FEVER 100.4 Amlodipine Besylate 5 mg 07/31/24 12:00 08/01/24 08:43 Amlodipine Besylate 5 Mg Tablet PO 08/30/24 11:59 5 mg QDAY EBEN Administration Dextrose 25 ml 07/31/24 11:55 Dextrose 50%-Water Inj 50 Ml Syringe IV 08/30/24 11:54 Q15MIN PRN BG 50-70 responsive npo pt Dextrose 50 ml 07/31/24 11:55 Dextrose 50%-Water Inj 50 Ml Syringe IV 08/30/24 11:54 Q15MIN PRN BG <50 OR BG <70 & pt unresponsive Glucagon 1 mg 07/31/24 11:55 Glucagon Inj 1 Mg Vial IM Q15MIN PRN BG <70, and no IV access Insulin Glargine 10 unit 08/01/24 09:00 08/01/24 08:40 Insulin Glargine (Lantus) 5 Unit/0.05 Ml (Per 5 Units) SC 08/31/24 08:59 10 unit BID EBEN Administration Insulin Human Lispro 0 unit 07/31/24 14:30 08/01/24 08:39 Insulin Lispro (Admelog) 1 Unit/0.01 Ml Unit SC 08/30/24 14:29 2 unit Q6H EBEN Administration Protocol Lactulose 10 gm 07/31/24 16:30 08/01/24 08:40 Lactulose Syrup 20 Gm/30 Ml Udc PO 08/30/24 16:29 10 gm DAILY EBEN Administration Protocol Morphine Sulfate 3 mg 07/31/24 15:27 Morphine Sulf Inj 10 Mg/Ml Vial IVP 08/05/24 15:26 Q4HR PRN PAIN Ondansetron HCl 4 mg 07/31/24 15:27 Ondansetron Inj 2 Mg/Ml Inj 2 Ml IVP 08/30/24 15:26 Q4HR PRN NAUSEA OR VOMITING Protocol Plan 73-year-old female status post laparoscopic cholecystectomy done 07/[address] Parr. Hospitalist team consulted for management of hyperglycemia. #Hyperglycemia 2/2 [id number] type 2 diabetes Patient takes Janumet 50mg-1000mg at home. Glucose on admission 236. a1c 12.8 this admission. She received diabetic education and instructed to start taking glargine 20 units at bedtime, use of freestyle lance 3. Patient should continue taking Janumet and Rybelsus for diabetes as well. #HTN Resumed home med amlodipine 5mg daily #s/p laparoscopic cholecystectomy Recommendations per surgery team. -pending PT Health maintenance: Dispo: consulted for hyperglycemia, status post Dotty on MedSurg FEN: Low-carb clear liquid diet, will advance as tolerated DVT prophylaxis: SCDs CODE STATUS: Full code The patient's management plan was discussed with my attending physician Dr. Marie. Chloé Casas, PGY-1 Attending Provider Attestation/Addendum I attest that I was physically present for the evaluation, physical examination, lab and imaging review of the patient with the residents. I discussed the case with the residents and agree with the findings and plans of care as documented above. At bedside today, patient states she is feeling well. Abdominal pain has been well-controlled. Has been able to ambulate with physical therapy. Was able to tolerate her diet well. Blood glucose improved to 167 this morning. Hemoglobin A1c came back at 12.8. Blood pressure controlled with amlodipine 5. Patient stated she takes Janumet at home. We will add Lantus 20 units daily and continue her home Janumet along with amlodipine on discharge. Patient is stable for discharge from internal medicine standpoint, with PCP to adjust her medication dosing. Patient received diabetic education before discharge. Joseph Marie MD
--- NOTE | 2024-08-06 14:21 | PC.CC ---
[employer] for [employer] Plus sensor and reader approved through 08/06/25. Updated [facility].
== END 2024-08-01 13:45 | disposition home or self-care (01) ==
LOC: S3NX 08-01 06:49
PROVIDERS: Admitting Provider Surgery; PCP Family Medicine; Referring Provider Surgery; Visit Provider Student in an Organized Health Care Education/Training Program
PROC: 0FT44ZZ Resection of Gallbladder, Percutaneous Endoscopic Approach (ICD-10-PCS; CPT 47562; principal; 2024-07-31 08:00)
DX: K80.10 Calculus of gallbladder with chronic cholecystitis without obstruction (principal); Z90.49 Acquired absence of other specified parts of digestive tract; Z79.899 Other long term (current) drug therapy; Z79.4 Long term (current) use of insulin; I10 Essential (primary) hypertension; E11.65 Type 2 diabetes mellitus with hyperglycemia; Z01.810 Encounter for preprocedural cardiovascular examination
CPT/HCPCS: 47562; 36415; 80051; 80053; 83036; 85025; 85610; 85730; 90471; 93005; 96374; 96376; 97162; A4217; A4649; G0378; J0131; J1100; J1815; J2405; J2704; J3010; J3490; J7030; J7120; A9270; G0009